=== PATIENT | female | born 1950 | race Hispanic/Latino ===

== ENCOUNTER 2018-11-17 05:51 | Day surgery (SDC) | payer MEDICARE ==
[2018-11-17] MEDS ORDERED: ECOTRIN PO ONE (06:31)
[2018-11-17] MEDS ORDERED: NACL 0.9% 500 ML 500 ML IV SCH (07:00)
[2018-11-17 07:08] LABS: Basophils # (Auto) 0.1 K/mm3 (0.0-0.1); Basophils % (Auto) 0.8 % (0.0-1.8); Eosinophils # (Auto) 0.2 K/mm3 (0.0-0.4); Hemoglobin 12.3 gm/dl (10.1-14.3); Lymphocytes # (Auto) 3.2 K/mm3 (1.2-5.4); Mean Corpuscular HGB Conc 34 % (30-34); Mean Corpuscular Volume 93 fl (79-97); Monocytes # (Auto) 0.9 K/mm3 (0.0-0.8); Monocytes % (Auto) 8.3 % (0.0-7.3); Platelet Count 246 K/mm3 (140-440); Red Blood Count 3.86 M/mm3 (3.65-5.03); Red Cell Distribution Width 14.5 % (13.2-15.2)
[2018-11-17 07:18] LABS: INR 0.91 (0.87-1.13)
[2018-11-17 07:27] LABS: Calcium 8.9 mg/dL (8.4-10.2)
[2018-11-17] MEDS ORDERED: VERSED ONE (08:55)
[2018-11-17] MEDS ORDERED: XYLOCAINE 2% INFILTRATI ONE (08:56)
[2018-11-17] MEDS ORDERED: HEPARIN 10,000 UNITS/10 ML ONE (08:56)
[2018-11-17] MEDS ORDERED: HEPARIN/NS 5000 UNIT/500ML(CATH LAB) 1,000 ML IR ONE (08:56)
[2018-11-17] MEDS: SUBLIMAZE ONE ×2 (09:31→10:00)
[2018-11-17] MEDS ORDERED: NORCO 5/325 PO ONE (11:00)
--- NOTE | 2018-11-17 11:09 | Cardiac Catherization Report ---
CARDIAC CATHETERIZATION INDICATION FOR PROCEDURE: The patient is a 67-year-old white female with history of aortocoronary bypass surgery performed on 06/20/2005 with left internal mammary to the 2 mm LAD, there was saphenous vein graft to 1.5 mm posterior descending artery and there was saphenous vein graft to 2.5 mm mid obtuse marginal branch, presently was noted to have abnormal stress nuclear imaging with medium sized mostly reversible inferoapical and inferolateral defects suggestive of ischemia. The patient is also scheduled for right hip replacement, hence scheduled for cardiac catheterization for definitive diagnosis and treatment. The patient is aware of the procedure, potential complications and alternatives of therapy available. DESCRIPTION OF PROCEDURE: The patient was brought to the catheterization laboratory in a fasting condition. Informed consent was obtained. The patient was evaluated for moderate sedation and was felt to be appropriate candidate for moderate sedation. The patient received IV Versed and fentanyl for sedation. Right femoral artery was prepared in a standard fashion with chlorhexidine solution. Sterile drapes were applied. Under ultrasonic guidance and also fluoroscopic guidance, a right common femoral artery puncture was made after giving local anesthesia. A 5-Yakut sheath was introduced. A 5-Yakut multipurpose catheter was used to obtain the angiograms of the vein grafts, angiograms of the right and left coronary arteries and left ventriculogram done in ESPINO and [place] projection using hand injection. Subsequently, 5-Yakut mammary catheter was used to obtain the angiograms of the left mammary graft. At the end of the procedure, catheter and sheath were removed. Good hemostasis was achieved with manual pressure. No untoward complications were noted. The patient tolerated the procedure well. The patient's sedation started at 9:31 a.m. and was monitored continuously with EKG, pulse oximetry, and also hemodynamic monitoring. Sedation ended at 10:04 a.m. Following findings were noted. HEMODYNAMICS: 1. Opening aortic pressure 183/67, left ventricular pressure 186/27. No gradient across the aortic valve with estimated ejection fraction 50-55%. 2. Left ventriculogram done in [place] projection showed normal sized left ventricle with normal contractility. End-diastolic and systolic volumes are normal. Only limited amount of dye was injected. Mitral regurgitation could not be evaluated. Overall, estimated ejection fraction 50-55%. 3. Right coronary artery dominant vessel is occluded in the proximal to mid part. Distal vessel is not visualized. 4. Saphenous vein graft to the PDA is smooth and widely patent. PDA itself without any significant disease. Distal RCA is filling to some extent. 5. Left coronary artery arises normally from left coronary cusp. Left main without significant disease. LAD is occluded after a medium sized diagonal branch. Distal LAD is not visualized on navajo vessel injection. Circumflex artery large vessel shows a small to medium sized anterolateral branch, which is without significant disease. Mid obtuse margin branch is very small caliber, less than 1 mm, significant 80% ostial lesion and also subtotal in the mid part. However, this is very-very small caliber vessel. Posterolateral branch medium sized vessel without significant disease. Saphenous vein graft to the mid obtuse marginal branch is occluded with only stump being visualized. Left internal mammary graft to the LAD is widely patent supplying the mid LAD. LAD itself is well visualized is small caliber, but without any obstructive lesions. Collaterals none. FINAL IMPRESSION: Normal sized left ventricle with normal contractility. Left internal mammary to the LAD is widely patent with LAD itself with no obstructive lesions. Similarly vein graft to the PDA is widely patent with PDA itself without significant disease. Vein graft to the mid obtuse marginal branch is occluded; however, this branch is very small caliber vessel with significant disease. Because of the above findings, particularly with very small caliber mid obtuse marginal branch, we will continue medical therapy. Continue aggressive risk factor modification. Considering the above angiographic pictures, the patient would be cleared for her hip replacement. Findings were explained to the patient and her . They understand. As mentioned above, sedation started at 9:31 a.m., monitored up to 10:04 a.m. No untoward complications were noted. At the end of the procedure, the patient is alert, oriented x 3 without any difficulty in breathing, communicating normally. JOB# [id number] GIA/FRANCISCO
--- NOTE | 2018-11-17 13:47 | Short Stay Summary ---
Short Stay Documentation Date of service: 11/17/18 - History H&P: obtained from office - Allergies and Medications Current Medications: Allergies No Known Allergies Allergy (Unverified 11/17/18 05:52) Home Medications Medication Instructions Recorded Confirmed Last Taken Type Aspirin EC [Aspirin Enteric Coated 81 mg PO DAILY 11/17/18 11/17/18 11/14/18 History TAB] 81mg AtorvaSTATin [Lipitor] 20 mg PO 11/17/18 11/17/18 11/16/18 History 20mg Cinnamon Bark [Cinnamon] 1,200 mg PO [facility] 11/17/18 11/17/18 11/16/18 History 1200mg Diclofenac Sodium 75 mg PO 11/17/18 11/17/18 11/16/18 History 75mg Empagliflozin (Nf) [Jardiance (Nf)] 10 mg PO [facility] 11/17/18 11/17/18 11/16/18 History 10mg Esomeprazole Magnesium [Nexium] 40 mg PO DAILY 11/17/18 11/17/18 11/16/18 History 40mg Gabapentin [Neurontin] 600 mg PO BID 11/17/18 11/17/18 11/16/18 History 600mg Lisinopril [Zestril TAB] 2.5 mg PO [facility] 11/17/18 11/17/18 11/16/18 History 2.5mg Magnesium Amino Acid Chelate 8 mg PO 11/17/18 11/17/18 11/16/18 History [Magnesium] 8mg Metoprolol [Lopressor TAB] 50 mg PO 11/17/18 11/17/18 11/16/18 History 50mg [place]-3 Fatty Acids/Fish Oil [Fish 1,040 mg PO DAILY 11/17/18 11/17/18 11/16/18 History Oil] 1040mg Potassium 99 mg PO DAILY 11/17/18 11/17/18 11/16/18 History 99mg metFORMIN [Glucophage] 2 tab PO BID 11/17/18 11/17/18 11/16/18 History 2 tabs Active Medications Sodium Chloride (Nacl 0.9% 500 Ml) 500 mls @ 50 mls/hr IV DIRECT RUDI Stop: 11/17/18 16:59 Last Admin: 11/17/18 07:51 Dose: 50 mls/hr Documented by: - Brief post op/procedure progress note Date of procedure: 11/17/18 Pre-op diagnosis: CAD Post-op diagnosis: same Procedure: [facility] - see dictated cath report Anesthesia: local Estimated blood loss: none Condition: stable - Disposition Condition at discharge: Good Disposition: [id number] TO HOME OR SELFCARE - Discharge Diagnoses (1) CAD (coronary artery disease) Status: Chronic (2) 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
[2018-11-17 13:51] VITALS: BP 133/49
== END 2018-11-17 14:20 | disposition home or self-care (01) ==
LOC: CATHLABREC 05:51
PROVIDERS: ATTEND Internal Medicine
DX: I25.10 Atherosclerotic heart disease of native coronary artery without angina pectoris (principal); E78.00 Pure hypercholesterolemia, unspecified; I10 Essential (primary) hypertension; K21.9 Gastro-esophageal reflux disease without esophagitis; M19.90 Unspecified osteoarthritis, unspecified site; Z79.899 Other long term (current) drug therapy; Z79.82 Long term (current) use of aspirin; Z79.84 Long term (current) use of oral hypoglycemic drugs; Z95.1 Presence of aortocoronary bypass graft; Z86.718 Personal history of other venous thrombosis and embolism; Z90.49 Acquired absence of other specified parts of digestive tract; Z98.51 Tubal ligation status; Z98.890 Other specified postprocedural states; Z79.01 Long term (current) use of anticoagulants
CPT/HCPCS: 36415; 76937; 80048; 85025; 85610; 85730; 93005; 93010; 93459; 99156; 99157; C1769; J1644; J2250; J3010; J7040; Q9967